=== PATIENT | male | born 1995 | race Caucasian/White ===

== ENCOUNTER → 2019-12-01 | Outpatient (CLI) | payer OTHER ==
--- NOTE | 2019-12-01 10:16 | REP ---
MRI LEFT FOOT: TECHNIQUE: Multiple sequences obtained in the axial, coronal, and sagittal planes. There reportedly is a palpable lump at the plantar aspect of the foot. At the level of the base of the 1st metatarsal in the plantar fascia, there is an oval nodule, which is somewhat heterogeneous on T2-weighted images with slight increased signal in portions of the nodule. It is isointense on T1. It measures approximately 0.8 x 1.6 x 1.1 cm. 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 It is superficial and located just below the skin surface. No other abnormality is seen of the flexor extensor tendons. There is no tenosynovitis. The visualized osseous structures demonstrate normal bone marrow signal with no bone marrow edema or occult fracture. No cyst or fluid collection is seen. IMPRESSION: Findings compatible with a plantar fibroma as discussed above at the level of the base of the 1st metatarsal. Electronically Signed by Andrew Awad MD 12/01/2019 12:55 P
== END ==
LOC: M RAD 06:33
PROVIDERS: ATTEND Podiatrist Foot & Ankle Surgery
DX: D21.22 Benign neoplasm of connective and other soft tissue of left lower limb, including hip (principal)